=== PATIENT | male | born 1960 | race Caucasian/White ===

== ENCOUNTER 2019-02-09 14:17 | Emergency (ER) | payer OTHER ==
[~2019-02-09] VITALS: Ht 170.2 cm; Wt 86.4 kg
[2019-02-09] MEDS ORDERED: HTN MEDS PO (14:49)
[2019-02-09] MEDS ORDERED: ATOR10TA84 PO (14:49)
[2019-02-09] MEDS ORDERED: METF-960 PO (14:49)
[2019-02-09 18:20] VITALS: BP 119/79
== END 2019-02-09 18:30 | disposition home or self-care (01) ==
LOC: EMS 14:19
DX: S91.301D Unspecified open wound, right foot, subsequent encounter (principal); E11.9 Type 2 diabetes mellitus without complications; E78.00 Pure hypercholesterolemia, unspecified; I10 Essential (primary) hypertension; Z88.8 Allergy status to other drugs, medicaments and biological substances; Z79.84 Long term (current) use of oral hypoglycemic drugs; X58.XXXD Exposure to other specified factors, subsequent encounter